=== PATIENT | female | born 1955 | race Caucasian/White ===

== ENCOUNTER 2017-01-20 06:33 | Observation (INO) | payer OTHER ==
--- NOTE | ~2017-01-20 | DS ---
Discharge Summary [id number] [place]. [address] NAME: ADITI ANDERSON : 53 STATUS : DIS Suhail PAT#: [id number] AGE: 61 ADM/REG DATE : 01/20/17 MR#: [id number] REPORT SERV DATE: 01/22/17 DICTATED BY: GENA JONES DATE: 01/21/17 REPORT STATUS : Draft TRANSCRIBED BY: MODL DATE: 01/21/17 ADMISSION DATE: 01/20/2017 DISCHARGE DATE: 01/21/2017 INDICATION FOR HOSPITALIZATION: Percutaneous biopsy of left kidney to evaluate proteinuria. DISCHARGE DIAGNOSES: 1. Proteinuria with history of positive RENAY 1:80 titer, underlying diabetes, cirrhosis secondary to nonalcoholic steatohepatitis, hypertension, and nonsteroidal antiinflammatory drugs. 2. Chronic kidney disease stage 2. 3. Type 2 diabetes mellitus. 4. Cirrhosis secondary to nonalcoholic steatohepatitis. 5. Depression. 6. Diverticulosis. 7. Remote gastritis. 8. Gastroesophageal reflux disease. 9. Diabetic gastroparesis. 10.Gout. 11.Hypertension. 12.Hyperlipidemia. 13.Neuropathy. 14.Seizure disorder. 15.Type 2 diabetes mellitus. HOSPITAL COURSE: The patient was admitted for percutaneous renal biopsy to evaluate proteinuria. She has multiple factors underlying proteinuria, but was felt to need further specific evaluation due to use of nonsteroidals, positive RENAY, underlying diabetes, hypertension, and cirrhosis. Her most recent kbjxkwl-[id number] ratio was 4.67 g. The patient underwent percutaneous biopsy of left kidney on 01/20/[address] Holly. She tolerated this procedure well. She did note some pinkish urine on first void, was cleared subsequently. She had no back or flank pain. She was advised to contact the office if there was temperature greater than 100.4, severe pain, requiring more than Tylenol or gross hematuria. She was also advised to restrict activity for five days with no lifting, bending, housework, and yard work. The patient was felt stable for release. DISCHARGE MEDICATIONS: Xanax mg q.h.s.; aspirin to resume on 01/24/2017; Tegretol 200 mg twice daily; Zyrtec 10 mg q.h.s.; Prozac 20 mg q.h.s.; Lasix 40 mg daily; Neurontin 600 mg two tablets each evening; Glucotrol 10 mg twice daily; glucosamine chondroitin sulfate one q.h.s.; ibuprofen to be held until 01/24/2017; Lantus insulin 40 units q.a.m. and 30 units q.p.m.; Humalog insulin 40 units subcutaneously q.a.m., 30 units subcutaneously q.p.m., 30 units subcutaneously at noon; lisinopril and hydrochlorothiazide 20/25 one daily; hold Mobic until 01/24/2017; metformin 1000 mg twice daily; Prilosec 20 mg twice daily; Pravachol 20 mg daily; vitamin E 400 units daily. Discharge Summary [address] [address] NAME: ADITI ANDERSON : 53 STATUS : DIS Suhail PAT#: [id number] AGE: 61 ADM/REG DATE : 01/20/17 MR#: [id number] REPORT SERV DATE: 01/22/17 DICTATED BY: GENA JONES DATE: 01/21/17 REPORT STATUS : Draft TRANSCRIBED BY: SAMUEL DATE: 01/21/17 DIET: Diet will be low sodium 2000 calorie ADA diet. ACTIVITY: Restricted with no lifting greater than 15 pounds. No bending, stooping, or twisting for five days. Avoid housework, such as vacuuming, sweeping, mopping for five days. No yard work for five days. Then, she may resume activity. Contact the office for severe pain, not relieved by Tylenol; temperature greater than 100.4; and gross hematuria. CG/TOOTIEL Gena Jones M.D. / [id number] CC: Merlene Swain M.D.
[~2017-01-20 06:33] MED LIST: ADVIL PO; ALAVERT10 MG PO; ASAB PO; B 12; CELEBREX2 PO; CELEXA40 MG PO; CO ENZYME Q; CO-Q-10 PO; CONSTULOSE PO; COSAMIN DS1 TAB PO; CYANO1000T PO; DEMA20 PO; EFFEXXR75 PO; FISH-EPA1000 MG PO; GABAPENTIN PO; GLUCCHONDR PO; GLUCOPHAGE1000 MG PO; GLUCOTRO10 PO; GRALISE600 MG PO; HUMALOG SC; INSULIN LANTUS; JANUVIA100 MG PO; L20 PO; L40 PO; LANTUS SC; LESXL80 PO; LEVAQUIN750 MG PO; LEVBID PO; LORTAB10 PO; MILK THISTLE; MOBIC15 MG PO; NEUR600 PO; NOVOLOG SC; PCET PO; PERCOCET1 TA4 PO; PRAV10 PO; PRAVAC PO; PREV30 PO; PRILO PO; PRISTIQ50 MG PO; PROTONIX PO; PROZAC; PROZAC PO; STOOL SOFTEN100 MG PO; STOOL SOFTNER; TEG200 PO; VITAMIN B-121000 MC1 SL; VITAMIN E; VITE PO; X25 PO; X5 PO; XANAX XR0.5 MG PO; ZESTORETIC1 TA1 PO; ZYRTEC ALLGY10 MG PO; [UNRECOGNIZED DRUG - OTHER] SQ
[2017-01-20 07:35] LABS: BASOPHILS 0.4 %; BASOPHILS ABSOLUTE 0.03 10/3/uL (0.0-0.16); EOSINOPHILS 2.9 %; EOSINOPHILS ABSOLUTE 0.21 10/3/uL (0.0-0.53); HEMATOCRIT 34.7 % (36.0-48.0); HEMOGLOBIN 11.7 g/dL (12.0-16.0); IMMATURE GRANULOCYTES 0.3 %; IMMATURE GRANULOCYTES ABSOLUTE 0.02 10/3/uL (0.0-0.11); LYMPHOCYTES 22.7 %; LYMPHOCYTES ABSOLUTE 1.62 10/3/uL (0.67-4.30); MANUAL DIFF NO %; MEAN CORPUS HGB CONC 33.7 g/dL (32.0-36.0); MEAN CORPUSCULAR HEMOGLOB 29.3 pg (26.0-34.0); MEAN CORPUSCULAR VOLUME 86.8 fL (80-100); MEAN PLATELET VOLUME 9.2 fL (9.2-13.0); MONOCYTES 4.5 %; MONOCYTES ABSOLUTE 0.32 10/3/uL (0.21-1.20); NEUTROPHILS 69.2 %; NEUTROPHILS ABSOLUTE 4.93 10/3/uL (2.02-8.40); PLATELET COUNT 171 10/3/uL (150-400); RBC DISTRIBUTION WIDTH 16.1 % (12.0-16.0); WHITE BLOOD CELLS 7.1 10/3/uL (4.5-10.5)
[2017-01-20 07:41] LABS: INTERNATIONAL NORMAL RATI 1.1 UNITS (-); PARTIAL THROMBO TIME 28.3 SEC (22.5-37.2); PROTIME (NOT ORD) 13.7 SEC (12.0-14.5)
[2017-01-20] MEDS ORDERED: HUMALOG SQ (08:37)
== END 2017-01-21 12:34 | disposition home or self-care (01) ==
LOC: IMGHOLD 06:33 → RADHOLD 06:44 → SSU1 17:53
PROVIDERS: Internal Medicine Nephrology
PROC: 0TB13ZX Excision of Left Kidney, Percutaneous Approach, Diagnostic (ICD-10-PCS; principal; 2017-01-20)
DX: E11.22 Type 2 diabetes mellitus with diabetic chronic kidney disease (principal); I12.9 Hypertensive chronic kidney disease with stage 1 through stage 4 chronic kidney disease, or unspecified chronic kidney disease; F32.9 Major depressive disorder, single episode, unspecified; E11.43 Type 2 diabetes mellitus with diabetic autonomic (poly)neuropathy; K31.84 Gastroparesis; M10.9 Gout, unspecified; E78.5 Hyperlipidemia, unspecified; E11.40 Type 2 diabetes mellitus with diabetic neuropathy, unspecified; N39.0 Urinary tract infection, site not specified; N17.9 Acute kidney failure, unspecified; N18.2 Chronic kidney disease, stage 2 (mild); D63.1 Anemia in chronic kidney disease; E78.00 Pure hypercholesterolemia, unspecified; M79.7 Fibromyalgia; M19.90 Unspecified osteoarthritis, unspecified site; Z90.49 Acquired absence of other specified parts of digestive tract; Z87.891 Personal history of nicotine dependence; Z88.1 Allergy status to other antibiotic agents; Z88.5 Allergy status to narcotic agent; Z88.8 Allergy status to other drugs, medicaments and biological substances; Z79.4 Long term (current) use of insulin; Z86.73 Personal history of transient ischemic attack (TIA), and cerebral infarction without residual deficits; Z90.89 Acquired absence of other organs; Z98.51 Tubal ligation status; Z98.890 Other specified postprocedural states
CPT/HCPCS: 50200; 77012; 82962; 85025; 85610; 85730; 88305; 88313; 88346; 88348; 88350; A9270-GY; G0378; J2250; J3010

== ENCOUNTER 2017-01-26 18:49 | Emergency (ER) | payer OTHER ==
[~2017-01-26 18:49] MED LIST changes: +HUMALOG SQ
[2017-01-26 20:52] LABS: BASOPHILS 0.1 %; BASOPHILS ABSOLUTE 0.01 10/3/uL (0.0-0.16); HEMOGLOBIN 11.6 g/dL (12.0-16.0); IMMATURE GRANULOCYTES 0.2 %; IMMATURE GRANULOCYTES ABSOLUTE 0.02 10/3/uL (0.0-0.11); LYMPHOCYTES 12.2 %; LYMPHOCYTES ABSOLUTE 1.19 10/3/uL (0.67-4.30); MEAN CORPUS HGB CONC 34.1 g/dL (32.0-36.0); MEAN CORPUSCULAR HEMOGLOB 29.2 pg (26.0-34.0); MEAN CORPUSCULAR VOLUME 85.6 fL (80-100); MEAN PLATELET VOLUME 8.9 fL (9.2-13.0); MONOCYTES 4.4 %; MONOCYTES ABSOLUTE 0.43 10/3/uL (0.21-1.20); NEUTROPHILS 82.1 %; NEUTROPHILS ABSOLUTE 8.01 10/3/uL (2.02-8.40); PLATELET COUNT 160 10/3/uL (150-400); RBC DISTRIBUTION WIDTH 15.2 % (12.0-16.0); RED CELL COUNT 3.97 10/6/uL (4.0-5.6); WHITE BLOOD CELLS 9.8 10/3/uL (4.5-10.5)
[2017-01-26 20:53] LABS: MANUAL DIFF NO %
[2017-01-26 20:59] LABS: PARTIAL THROMBO TIME 28.9 SEC (22.5-37.2); PROTIME (NOT ORD) 13.3 SEC (12.0-14.5)
[2017-01-26 21:04] LABS: CHLORIDE, SERUM 102 MMOL/L (96-112); CO2 (CARBON DIOXIDE) 25 MMOL/L (24-34); GLUCOSE, SERUM 252 MG/DL (60-99); POTASSIUM, SERUM 3.9 MMOL/L (3.5-5.3); SODIUM, SERUM 139 MMOL/L (135-148)
[2017-01-26 21:07] LABS: BUN (BLOOD UREA NITROGEN) 21 MG/DL (6-23); CALCIUM, SERUM 8.5 MG/DL (8.5-10.4); CREATININE 1.35 MG/DL (0.55-1.02); GFR AFRICAN AMERICAN 49 ML/MIN (>=60); GFR NON AFRICAN AMERICAN 42 ML/MIN (>=60)
== END 2017-01-26 22:03 | disposition home or self-care (01) ==
LOC: ER 18:49
PROVIDERS: Nurse Practitioner
DX: S16.1XXA Strain of muscle, fascia and tendon at neck level, initial encounter (principal); S20.212A Contusion of left front wall of thorax, initial encounter; I10 Essential (primary) hypertension; Z88.1 Allergy status to other antibiotic agents; Z88.5 Allergy status to narcotic agent; Z88.8 Allergy status to other drugs, medicaments and biological substances; Z91.013 Allergy to seafood; Z79.4 Long term (current) use of insulin; Z79.82 Long term (current) use of aspirin; Z79.899 Other long term (current) drug therapy; V49.9XXA Car occupant (driver) (passenger) injured in unspecified traffic accident, initial encounter
CPT/HCPCS: 71250; 72125; 80048; 85025; 85610; 85730; 99284; A9270-GY